=== PATIENT | female | born 1950 ===

== ENCOUNTER 2021-03-07 13:44 | Outpatient (CLI) | payer OTHER | END 2021-03-07 13:45 | disposition home or self-care (01) | LOC: MAMO-SONO 13:44 | PROVIDERS: ATTEND Internal Medicine Geriatric Medicine | DX: I11.9 Hypertensive heart disease without heart failure (principal); N64.59 Other signs and symptoms in breast; Z12.31 Encounter for screening mammogram for malignant neoplasm of breast; Z87.898 Personal history of other specified conditions ==

== ENCOUNTER 2021-03-07 14:04 | Outpatient (CLI) | payer OTHER | END 2021-03-07 14:08 | disposition home or self-care (01) | LOC: NUCLEAR 14:04 | PROVIDERS: ATTEND Internal Medicine Geriatric Medicine | DX: M81.0 Age-related osteoporosis without current pathological fracture (principal); M15.0 Primary generalized (osteo)arthritis ==

== ENCOUNTER 2022-03-26 12:58 | Outpatient (CLI) | payer OTHER | END 2022-03-26 13:06 | disposition home or self-care (01) | LOC: SONOGRAMA 12:58 | DX: I12.9 Hypertensive chronic kidney disease with stage 1 through stage 4 chronic kidney disease, or unspecified chronic kidney disease (principal); N18.1 Chronic kidney disease, stage 1; R80.1 Persistent proteinuria, unspecified; N28.0 Ischemia and infarction of kidney ==

== ENCOUNTER 2023-03-14 13:47 | Outpatient (CLI) | payer OTHER | END 2023-03-14 13:51 | disposition home or self-care (01) | LOC: NUCLEAR 13:47 | DX: M81.0 Age-related osteoporosis without current pathological fracture (principal) ==

== ENCOUNTER 2025-07-04 10:43 | Outpatient (CLI) | payer OTHER | END 2025-07-04 10:44 | disposition home or self-care (01) | LOC: NUCLEAR 10:43 | DX: M81.0 Age-related osteoporosis without current pathological fracture (principal) ==